=== PATIENT | male | born 1975 | race Caucasian/White ===

== ENCOUNTER 2016-10-31 19:26 | Emergency (ER) | payer OTHER ==
[2016-10-31] MEDS ORDERED: LIDOCAINE HCL 2% 20 ML VIAL ONE (20:02)
[2016-10-31] MEDS ORDERED: BACITRACIN 1 APP/PKT PKT TOPICAL ONE (20:02)
--- NOTE | 2016-10-31 20:17 | ER NURSING DOCUMENTATION ---
Nurse's Notes [facility] Name:Dustin Fuentes Age:40 yrs Sex:Male :1975 Arrival Date:10/31/2016 Time:19: Bed4 Private MD:Rupa Grant Diagnosis:Finger Laceration Presentation: 10/31 19:38 Acuity: YOON 3 rs 19:38 Presenting complaint: Patient states: avulsion laceration to right 3rd finger with lb knife. Transition of care: Home. Notified ED Physician of Dr. Adams notified. 19:38 Method Of Arrival: Walk In lb Triage Assessment: 19:40 General: Appears in no apparent distress, Behavior is appropriate for age. Pain: lb Complains of pain in palmar aspect of distal phalanx of right middle finger Pain does not radiate. Pain currently is 10 out of 10 on a pain scale. Musculoskeletal: No deficits noted. Injury Description: Avulsion sustained to palmar aspect of distal phalanx of right middle finger. Historical: - Allergies: No known drug Allergies; - Home Meds: 1. None - PMHx: None; - PSHx: wisdom teeth; - Tetanus: < 10 years. - Ebola Screening: : Patient denies exposure to infectious person. Patient denies travel to an Ebola-affected area in the 21 days before illness onset. . - Immunization history: Flu Vaccine None. - Social history: Smoking status: Patient uses tobacco products, current every day smoker. Patient uses alcohol occasionally. Screenin:41 Infectious Disease Risk None. Abuse screen: Denies threats or abuse. Denies injuries lb from another. Nutritional screening: No deficits noted. Assessment: 19:41 See Triage Assessment done by same RN. lb Vital Signs: 19:41 BP 127 / 79; Pulse 120; Resp 18; Temp 98; Pulse Ox 92% on R/A; Weight 65.77 kg; Height lb 5 ft. 6 in. (167.64 cm); Pain 10/10; 19:41 Body Mass Index 23.40 (65.77 kg, 167.64 cm) lb ED Course: 19:28 Patient arrived in ED. ma1 19:28 Physician, No is Private Physician. ma1 19:33 Elvis Adams MD is Attending Physician. md 19:38 Triage completed. rs 19:38 Teri Vann is Primary Nurse. lb 19:41 Valuables Remains with patient. lb 20:09 Wound care to finger tip avulsion was dressed with bacitracin Tube Gauze Telfa Patient rs tolerated well. 20:11 Awaiting disposition. rs Administered Medications: 20:12 Drug: Lidocaine (2 %) 10 ml; Route: Infiltration; sc 20:12 Drug: Bacitracin Ointment (500 unit/g) 1 application; Route: Topical; Site: wound; sc Outcome: 20:12 Discharge ordered by . md 20:12 Discharged to home rs 20:12 Condition: improved 20:12 Discharge instructions given to patient, Instructed on discharge instructions, Demonstrated understanding of instructions. 20:16 Patient left the ED. rs 11/01 11:33 Discharge F/U Call: Unable to reach: left voicemail: lp Signatures: Lauren Hall RN RN rs Rosita Oliveira RN RN lp Chew, Scott, MD MD sc Bollock, Lynda lb Addison, Melissa ma1
--- NOTE | 2016-10-31 20:17 | ER PHYSICIAN DOCUMENTATION ---
Physician Documentation [facility] Name:Dustin Fuentes Age:40 yrs Sex:Male :1975 Arrival Date:10/31/2016 Time:19:26 Bed4 Private MD:Physician, No ED Elvis Shields Disposition: 10/31/16 20:12 Discharged to Home/Self Care. Impression: Finger Laceration. - Condition is Good. - Discharge Instructions: FINGER LACERATION - LACERATION, Hand. - Medical Reconciliation form form. - Follow up: Private Physician; When: As needed; Reason: Worsening of condition. - Problem is new. - Symptoms have improved. HPI: 10/31 20:07 This 40 yrs old Male presents to ER via Walk In with complaints of Finger sc Injury - RIGHT MIDDLE. 20:07 The patient or guardian reports injury. The complaints affect the palmar aspect of sc distal phalanx of right middle finger. Context: The problem was sustained at home, resulted from fingertip avulsion. Onset: The symptom(s)/episode began/occurred 3 hour(s) ago. Historical: - Allergies: No known drug Allergies; - Home Meds: 1. None - PMHx: None; - PSHx: wisdom teeth; - Tetanus: < 10 years. - Ebola Screening: : Patient denies exposure to infectious person. Patient denies travel to an Ebola-affected area in the 21 days before illness onset. . - Immunization history: Flu Vaccine None. - Social history: Smoking status: Patient uses tobacco products, current every day smoker. Patient uses alcohol occasionally. ROS: 20:08 Constitutional: Negative for fever, chills, and weight loss. sc Eyes: Negative for injury, pain, redness, and discharge. Cardiovascular: Negative for chest pain, palpitations, and edema. Respiratory: Negative for shortness of breath, cough, wheezing, and pleuritic chest pain. Back: Negative for injury and pain. Skin: Negative for injury, rash, and discoloration. 20:08 Neuro: Negative for headache, weakness, numbness, tingling, and seizure. sc 20:08 MS/extremity: Positive for injury or acute deformity. Exam: Constitutional: This is a well developed, well nourished patient who is awake, alert, and in no acute distress. Head/Face: Normocephalic, atraumatic. Eyes: Pupils equal round and reactive to light, extra-ocular motions intact. Lids and lashes normal. Conjunctiva and sclera are non-icteric and not injected. Cornea within normal limits. Periorbital areas with no swelling, redness, or edema. 20:09 Back: No spinal tenderness. No costovertebral tenderness. Full range of motion. sc 20:09 Musculoskeletal/extremity: Extremities: grossly normal except: laceration. Vital Signs: 19:41 BP 127 / 79; Pulse 120; Resp 18; Temp 98; Pulse Ox 92% on R/A; Weight 65.77 kg; Height lb 5 ft. 6 in. (167.64 cm); Pain 10/10; 19:41 Body Mass Index 23.40 (65.77 kg, 167.64 cm) lb MDM: 19:33 Patient medically screened. sc 20:09 Differential diagnosis: superficial fingertip avulsion, wound care, after digital sc block. Data reviewed: vital signs, nurses notes, and as a result, I will discharge patient. Counseling: I had a detailed discussion with the patient and/or guardian regarding: the historical points, exam findings, and any diagnostic results supporting the discharge/admit diagnosis, the need for outpatient follow up. Dispensed Medications: 20:12 Drug: Lidocaine (2 %) 10 ml; Route: Infiltration; sc 20:12 Drug: Bacitracin Ointment (500 unit/g) 1 application; Route: Topical; Site: wound; ak Signatures: Lauren Hall RN RN rs Chew, Scott, MD MD sc Bollock, Lynda lb
== END 2016-10-31 20:17 | disposition home or self-care (01) ==
LOC: ER 19:26
DX: S61.212A Laceration without foreign body of right middle finger without damage to nail, initial encounter (principal); W26.0XXA Contact with knife, initial encounter; Y92.039 Unspecified place in apartment as the place of occurrence of the external cause
CPT/HCPCS: 99283